=== PATIENT | female | born 1960 | race Caucasian/White ===

== ENCOUNTER 2021-06-14 07:46 | Day surgery (SDC) | payer OTHER ==
[2021-06-06 13:32] VITALS: BMI 33.5
[2021-06-14] MEDS ORDERED: LIDOCAINE HCL/PF 2% SDV 5ML VIAL ONE (08:04)
[2021-06-14] MEDS ORDERED: PROPOFOL 20 ML ONE ×4 (08:04)
[2021-06-14 08:18] VITALS: TEMP 97.8
[2021-06-14 09:51] VITALS: BP 122/80; PULSE 78
== END 2021-06-14 09:51 | disposition home or self-care (01) ==
LOC: FASU-ENDO 07:46
PROVIDERS: ATTEND Internal Medicine Gastroenterology
PROC: 0DJD8ZZ Inspection of Lower Intestinal Tract, Via Natural or Artificial Opening Endoscopic (ICD-10-PCS; principal; 2021-06-14 08:29)
DX: Z86.010 Personal history of colon polyps (principal); K57.30 Diverticulosis of large intestine without perforation or abscess without bleeding; K64.0 First degree hemorrhoids